=== PATIENT | female | born 1985 | race Caucasian/White ===

== ENCOUNTER 2021-10-09 04:27 | Inpatient (IN) ==
[~2021-10-09 04:27] MED LIST: *HR* Nalbuphine 10 MG/ML AMPUL IV PRN; Azithromycin 500 MG in 0.9 % Sodium Chloride 250 ML IVPB PRN; Famotidine 20 MG/2 ML VIAL IVP PRN; Metoclopramide 10 MG/2 ML VIAL IVP PRN; Naloxone 0.4 MG/ML INJ IVP PRN; Ondansetron 4 MG/2 ML VIAL IVP PRN
[2021-10-09] MEDS ORDERED: miSOPROStoL 25 MCG TABLET PO PRN (04:38)
[2021-10-09 05:14] LABS: Basophils % 0.3 %; Eosinophils % 0.2 %; Hematocrit 37.1 % (35.3-44.9); Hemoglobin 12.1 g/dL (11.5-15.4); Immature Granulocytes % 0.3 % (0-4); Lymphocytes # 0.5 K/mcL (0.6-4.6); Mean Corpuscular HGB Conc 32.6 g/dL (31.6-35.5); Mean Corpuscular Hemoglobin 29.2 pg (28.0-33.3); Mean Corpuscular Volume 89.6 fL (83.0-100.0); Mean Platelet Volume 9.5 fL (9.4-12.4); Monocytes # 0.5 K/mcL (0.0-1.3); Neutrophils # 4.7 K/mcL (1.6-8.9); Platelet Count 241 K/mcL (140-400); Red Blood Count 4.14 M/mcL (3.82-4.97); Red Cell Distribution Width 13.2 % (11.5-14.5); Segmented Neutrophils % 81.2 %; White Blood Count 5.8 K/mcL (4.3-11.1)
[2021-10-09 05:23] LABS: Amphetamine Screen,Urine Negative ng/mL (Cutoff=1000); Barbiturate Screen,Urine Negative ng/mL (Cutoff=200); Benzodiazepines Screen,Urine Negative ng/mL (Cutoff=200); Cannabinoid Screen,Urine Negative ng/mL (Cutoff = 50); Cocaine Screen,Urine Negative ng/mL (Cutoff= 300); Opiate Screen,Urine Negative ng/mL (Cutoff=300); Phencyclidine Screen,Urine Negative ng/mL (Cutoff=25)
[2021-10-09] MEDS ORDERED: Oxytocin 20 units/ LR 1000 mL 20 UNIT/1,000 ML BAG IVC SCH ×2 (05:30→22:07)
[2021-10-09 05:55] LABS: Influenza B PCR Negative (Negative); Resp. Syncytial Virus PCR Negative (Negative)
[2021-10-09] MEDS: Ringers Solution, Lactated 1,000 ML IVC SCH ×2 (06:11→11:31)
[2021-10-09 06:24] LABS: SARS-CoV-2 by PCR (In House) Negative (Negative)
[2021-10-09 06:26] LABS: Influenza A PCR Positive (Negative)
[2021-10-09] MEDS ORDERED: EPHEDrine 50 MG/ML VIAL IVP PRN (08:32)
[2021-10-09] MEDS: Epidural Premix (fent/bupiv) 110 ML EP SCH ×2 (11:48→16:16)
[2021-10-09] MEDS ORDERED: Methylergonovine 0.2 MG/ML AMPUL IM ONE (18:30)
[2021-10-09] MEDS ORDERED: Ondansetron ODT 4 MG TAB.RAPDIS SL PRN (22:07)
[2021-10-09] MEDS ORDERED: Benzocaine/Menthol 56 GM AEROSOL SPRAY TP PRN (22:07)
[2021-10-09] MEDS ORDERED: Lanolin 7 G OINT...G. TP PRN (22:07)
[2021-10-09] MEDS: Ibuprofen 600 MG TABLET PO SCH (23:17)
[2021-10-09] MEDS: Acetaminophen 325 MG TABLET PO SCH (23:17)
[2021-10-09 23:27] VITALS: O2SAT 98
[2021-10-10] MEDS: Ibuprofen 600 MG TABLET PO SCH ×2 (06:20→16:57)
[2021-10-10] MEDS: Acetaminophen 325 MG TABLET PO SCH ×2 (06:21→15:52)
[2021-10-10] MEDS ORDERED: Prenatal Vit/FA 1 EACH TABLET PO SCH (09:00)
[2021-10-10 16:44] VITALS: BP 113/76; PULSE 83; TEMP 98.7
== END 2021-10-10 18:31 | disposition home or self-care (01) | DRG 807 ==
LOC: 1NENULAB → 1NENUOBS 23:22
PROVIDERS: ADMIT Student in an Organized Health Care Education/Training Program; ATTEND Student in an Organized Health Care Education/Training Program